=== PATIENT | female | born 1945 | race Caucasian/White ===

== ENCOUNTER 2018-12-08 07:32 | Outpatient (CLI) | payer MEDICARE, BC ==
[2018-12-08 12:14] LABS: Hemoglobin 13.3 g/dL (12.0-16.0); Mean Corpuscular HGB CONC 31.9 g/dL (32.0-36.0); Mean Corpuscular Hemoglobin 28.6 pg (27.0-31.0); Mean Corpuscular Volume 89.7 fL (78.0-98.0); Mean Platelet Volume 8.3 fL (7.4-10.4); Platelet Count 219 thou/uL (130-400); RBC Distribution Width 13.6 % (11.5-14.5); Red Blood Cell (RBC) Count 4.63 mill/uL (4.20-5.40); White Blood Cell (WBC) Count 5.4 thou/uL (4.8-10.8)
[2018-12-08 12:25] LABS: INR-International Normal Ratio 2.7
[2018-12-08 12:26] LABS: PTT 50.2 SEC (22.9-36.1)
[2018-12-08 12:46] LABS: Calcium 9.2 mg/dL (7.8-10.44); Chloride 103 mmol/L (98-107); Potassium 4.5 mmol/L (3.5-5.1); Sodium 137 mmol/L (136-145)
[2018-12-08 13:49] LABS: Anion Gap 15 mmol/L (10-20); BUN (Urea Nitrogen) 21 mg/dL (9.8-20.1); Calc. Creatinine Clearance 0 mL/min (70-130); Carbon Dioxide 25 mmol/L (23-31); Estimated GFR-MDRD 42; Glucose 172 mg/dL (83-110)
--- NOTE | 2018-12-08 22:33 | EKG ---
Test Reason : Blood Pressure : / mmHG Vent. Rate : 099 BPM Atrial Rate : 102 BPM P-R Int : 000 ms QRS Dur : 086 ms QT Int : 380 ms P-R-T Axes : 000 104 093 degrees QTc Int : 487 ms Atrial fibrillation Rightward axis Abnormal ECG When compared with ECG of 25-MAR-2017 08:16, Atrial fibrillation has replaced Sinus rhythm Vent. rate has increased BY 41 BPM Nonspecific T wave abnormality no longer evident in Lateral leads Confirmed by Satya RODRÍGUEZ ([id number]) on 12/08/2018 10:33:24 PM Referred By: [facility] Confirmed By:Satya RODRÍGUEZ
== END 2018-12-08 07:33 | disposition home or self-care (01) ==
LOC: LABBT 07:32
PROVIDERS: ATTEND Internal Medicine Cardiovascular Disease
DX: Z01.818 Encounter for other preprocedural examination (principal); I48.91 Unspecified atrial fibrillation
CPT/HCPCS: 80048; 85027; 85610; 85730; 93005; 93010

== ENCOUNTER 2018-12-10 06:44 | Inpatient (IN) | payer MEDICARE, BC ==
[2018-12-10] MEDS ORDERED: Heparin 10,000 UNITS/1 ML VIAL ONE ×3 (07:22→12:52)
[2018-12-10 08:08] LABS: INR-International Normal Ratio 1.6; Prothrombin Time 18.8 SEC (12.0-14.7)
[2018-12-10] MEDS ORDERED: Midazolam HCl 2 mg/2 ml Vial ONE ×2 (08:56→19:18)
[2018-12-10] MEDS ORDERED: Fentanyl 100 MCG/2 ML VIAL ONE ×2 (08:56→19:17)
[2018-12-10] MEDS ORDERED: Heparin 25,000 units/D5W 500 ML ONE (09:42)
[2018-12-10] MEDS ORDERED: Isoproterenol 0.2 MG/1 ML AMP ONE (09:42)
[2018-12-10] MEDS ORDERED: PHENYLEPHRINE-NS 100 MCG/ML 10 ML SYRINGE ONE ×2 (09:53→16:16)
[2018-12-10] MEDS ORDERED: Phenylephrine HCL 10 MG/ML VIAL ONE (10:08)
[2018-12-10] MEDS ORDERED: Amiodarone 150 MG/3 ML VIAL ONE (12:32)
[2018-12-10] MEDS ORDERED: Protamine Sulfate 50 MG/5 ML VIAL ONE (12:53)
[2018-12-10] MEDS ORDERED: Furosemide 40 MG/4 ML VIAL ONE (14:11)
[2018-12-10] MEDS ORDERED: Acetaminophen ER (8hr) 650 MG TAB PO PRN (15:00)
[2018-12-10] MEDS ORDERED: Ondansetron PF 4 MG/2 ML Vial ONE ×2 (15:15→16:16)
[2018-12-10] MEDS ORDERED: Promethazine HCl 25 MG/ML VIAL ONE (15:36)
[2018-12-10] MEDS ORDERED: Sodium Chloride 0.9% 10 ML ONE ×2 (15:39→16:34)
[2018-12-10] MEDS ORDERED: Lidocaine 1% PF 5 ML VIAL ONE (16:16)
[2018-12-10] MEDS ORDERED: Dexamethasone 20 MG/5 ML VIAL ONE (16:16)
[2018-12-10] MEDS ORDERED: Heparin 5,000 UNITS/ML VIAL ONE (16:16)
[2018-12-10] MEDS ORDERED: Calcium Chloride 1 GM/10 ML Abboject SYRINGE ONE (16:16)
[2018-12-10] MEDS ORDERED: Heparin 10,000 UNITS/ 10 ML VIAL ONE (16:16)
[2018-12-10] MEDS ORDERED: diphenhydrAMINE 50 MG/ML VIAL ONE ×2 (16:16→16:29)
[2018-12-10] MEDS ORDERED: Rocuronium Bromide 10 MG/ML (10ML VIAL) ONE (16:16)
[2018-12-10] MEDS ORDERED: PROPOFOL 200 MG/20 ML VIAL ONE (16:16)
--- NOTE | 2018-12-10 18:24 | OP ---
DATE OF PROCEDURE: 12/10/2018 PROCEDURE PERFORMED: Electrophysiology study and radiofrequency ablation. REASON FOR PROCEDURE: Ms. Lofton is a pleasant 73-year-old woman with history of rate-related cardiomyopathy, recurrent persistent atrial fibrillation initially noted in January 2015. At that point, responded to cardioversion but since September 2018, atrial fibrillation persisted. LVEF was 30% to 35% initially in 2014, but improved to 45% to 50% in September 2018. LVEF of 61% by nuclear scan. She is on chronic Xarelto for anticoagulation. History of elevated BMI, hypertension, diabetes. Here for pulmonary venous isolation procedure. DESCRIPTION OF PROCEDURE: The patient received propofol by Anesthesia specialist. After adequate level of sedation achieved, the left and right femoral venous area was prepped, draped, and anesthetized using subcutaneous lidocaine and under ultrasound guidance, both femoral veins were cannulated x2. On the left side, an 11-Maori short sheath was introduced to allow for the intracardiac echo catheter advanced to the right atrium. The 3D image of the right and left atrium, coronary sinus was performed, and catheter was used to monitor the transeptal procedure as well as to rule out effusion throughout the case. Also in the left femoral vein, a preface sheath was introduced through which DuoDeca catheter was advanced to the right atrium, right ventricle, and eventually CS position. Pacing, mapping, and recording were performed in each location. Following that , on the right side, two 8-Maori short sheath was introduced through which a ThermoCool SFST catheter was advanced to the right atrium and right atrial 3D map was obtained. At this point, the patient was in atrial fibrillation, HV was at 52 milliseconds. QRS is 74 milliseconds noted. QT is 380 milliseconds. A transseptal procedure was performed switching the right-sided sheath to SL1 sheath, which was used with help of a Angiologix catheter to cannulate the left atrium. IV heparin was introduced at this point and ACT was kept over 350 throughout the case. The esophageal probe was used also to monitor temperature to avoid excessive esophageal heating. Through the SL1 sheath, a 20-pole deflectable Lasso catheter was used to obtain 3D image of the left atrium and a ThermoCool SFST catheter was used to perform pulmonary venous isolation and posterior wall isolation. Also, isolation of the inferior wall segments were performed. Septal ablation was also performed. The roof was also ablated. Despite that, the patient required external cardioversion to restore sinus rhythm. Basic EP study was performed(AV WB CL 380ms; VA WBCL 360ms. cSNRT 200ms; HV 54msQRS 74ms, KY 118ms.No dual AVN physiology or accessory pathways were noted.) Isuprel was administered. The pulmonary vein isolation was rechecked and reconnections were re-ablated. Burst atrial pacing induced typical appearing atrial flutter, therfore CTI ablation line was also placed. 2 additional left atrial flutter was induced. One ablated by the base of the LA appendage and an other mapped and ablated at the anterior roof. Sinus rhythm was achieved at the end of atrial flutter ablation. At the end of the case, the patient hadno significant amount of pericardial effusion, overall tolerated the procedure well. Total ablation lesions delivered were 68 ablations with total duration of 45 minutes at 40 encarnacion. CONCLUSION: Successful isolation of all 4 pulmonary veins, posterior wall and inferior wall. Ablation of the intra atrial septum, Right atrial free wall and 2 additional induced atrial flutters (At the base of the TRINO and mid Roof) were performed. Job ID: [id number] [facility]
[2018-12-10] MEDS ORDERED: hydrALAZINE 20 MG/ML VIAL ONE (18:36)
[2018-12-10] MEDS ORDERED: Labetalol HCl 100 MG/20 ML VIAL SLOW IVP PRN (18:54)
[2018-12-10] MEDS ORDERED: Dexamethasone 4 mg/ml Vial ONE (19:07)
[2018-12-10] MEDS ORDERED: Succinylcholine Chloride 20 MG/ML 10 ml SYRINGE FS ONE (19:15)
[2018-12-10] MEDS ORDERED: PROPOFOL 20 ML ONE (19:15)
[2018-12-10] MEDS ORDERED: Oxymetazoline HCl 0.05% ( 15 ML ) ONE (19:36)
[2018-12-10] MEDS ORDERED: Lidocaine 2% Jelly 5 ML TUBE ONE (19:37)
[2018-12-10] MEDS ORDERED: Rivaroxaban 15 MG TAB PO SCH ×3 (21:00→23:59)
[2018-12-10] MEDS: Calcium Carbonate + Vit D 1 TAB PO SCH (23:56)
[2018-12-10] MEDS: hydrALAZINE 20 MG/ML VIAL SLOW IVP PRN (23:56)
[2018-12-11 00:08] VITALS: BMI 43.6
[2018-12-11] MEDS ORDERED: Ondansetron PF 4 MG/2 ML Vial SLOW IVP PRN (04:12)
[2018-12-11] MEDS ORDERED: diphenhydrAMINE 50 MG/ML VIAL IVP SCH (04:15)
[2018-12-11] MEDS: hydrALAZINE 20 MG/ML VIAL SLOW IVP PRN (05:13)
[2018-12-11] MEDS: Ketorolac Tromethamine 30 MG/ML VIAL IVP PRN (05:14)
[2018-12-11] MEDS: Amiodarone 450 MG, Admixture Fee 1 EACH in Dextrose 5% in Water 250 ML IVPB SCH ×2 (07:38→12:25)
[2018-12-11] MEDS ORDERED: [UNRECOGNIZED DRUG - OTHER] PO SCH (09:00)
[2018-12-11] MEDS ORDERED: [UNRECOGNIZED DRUG - OTHER] PO SCH (09:00)
[2018-12-11] MEDS: Glimepiride 4 MG TAB PO SCH ×2 (10:16→11:50)
[2018-12-11] MEDS: FLUoxetine HCl 20 MG CAP PO SCH (10:17)
[2018-12-11] MEDS: Calcium Carbonate + Vit D 1 TAB PO SCH ×2 (10:17→21:17)
[2018-12-11] MEDS: Carvedilol 6.25 MG TAB PO SCH ×2 (10:17→12:38)
[2018-12-11] MEDS: Aspirin 81 mg Enteric Coated Tablet PO SCH (10:17)
[2018-12-11] MEDS: Gabapentin 100 MG CAP PO SCH (10:18)
[2018-12-11] MEDS: Multivitamin W/ Minerals 1 TAB PO SCH (10:18)
--- NOTE | 2018-12-11 11:12 | CON ---
DATE OF CONSULTATION: HISTORY OF PRESENT ILLNESS: Olga Lofton is a 73-year-old female, who underwent ablation yesterday shortly after she developed marked swelling of her tongue. Additionally, the tongue was found to be markedly discolored, bluish. The patient has a normal EF. She was then seen by ENT physician yesterday and a trumpet had been place in the right nostril. She underwent successful pulmonary venous isolation and right-sided ablation of the lesion. This morning, her tongue is less swollen. She denies any chest pain, chills, or sweats. at the bedside. The patient is a nonsmoker. No prior history of TB, pneumonia, or bronchial asthma. PAST MEDICAL HISTORY: Pertinent mainly for atrial fibrillation, chronic pain, and diabetes. PAST SURGICAL HISTORY: Otherwise, none recently. MEDICATIONS: Chronic medications from home includes: 1. Omeprazole 20. 2. Amaryl 4 mg. 3. Gabapentin 100. 4. Omeprazole 20. 5. Xarelto 15. 6. Coreg 12.5. 7. Prozac 20. 8. Vitamins. ALLERGIES: NONE. SOCIAL HISTORY: Alcohol and tobacco, none. PHYSICAL EXAMINATION: GENERAL: Awake, alert, and responsive. VITAL SIGNS: Blood pressure is 150/80, pulse 100, respiratory rate 18, and sats 95%. HEENT: Tongue is markedly discolored with bluish-blackish discoloration. CHEST: Reveal decreased breath sounds. No wheezing. CARDIAC: Normal S1 and S2. No gallops. ABDOMEN: No masses. LABORATORY DATA: Blood sugar 305. IMPRESSION: 1. Status post what appears to be hemorrhage in the tongue accounting for marked tongue swelling. 2. Status post ablation. 3. Atrial fibrillation. 4. Diabetes. PLAN: Very unusual circumstances with marked swelling of the tongue secondary to presumed bleeding inside the tongue, this has improved, probably aggravated by her taking the Xarelto and maybe intubation. We will continue observation in the ICU. At this stage, she is not compromised. We will follow. Job ID: [id number]
[2018-12-11] MEDS ORDERED: Dextrose 5% in Water 1,000 ML IV PRN (11:47)
[2018-12-11] MEDS ORDERED: Dextrose 50% Abboject 50 ML SYRINGE SLOW IVP PRN (11:47)
--- NOTE | 2018-12-11 11:51 | PDOC.CTH ---
Cardiology Progress Note - Subjective EP PROGRESS NOTE: 12/11/18 Seen as follow up for atrial fibrillation s/p PVI on 12/10/18. Had overnight nausea and heart racing. She was started given zofran but then did vomit. She continues to have tongue swelling and pain but reports the pain has subsided some. - Objective Vital Signs Temp Pulse BP 12/11/18 05:29 152 H 183/117 H 12/11/18 03:39 97.9 F 12/10/18 23:56 80 184/98 H 12/10/18 23:51 98.8 F Weight 216 lb 1.6 oz 12/10/18 12/11/18 12/12/18 06:59 06:59 06:59 Intake Total 350 Output Total 500 Balance -150 - Physical Examination General/Neuro: alert & oriented x3 Neck: carotid US brisk, no JVD present Lungs: CTA, unlabored respirations Heart: PMI normal, RRR Abdomen: NT/ND, soft Other PE findings: bilateral groin sites stable. tongue discoloration/swelling - Telemetry Telemetry Rhythm: SR - Labs Result Diagrams: 12/11/18 12:22 12/11/18 12:22 - Assessment/Plan 1. Persistent atrial fibrillation -s/p RFA/PVI on 12/11/18 for AFib, 2 seperate LA flutters, RA flutter/CTI. 45min RF energy delivered -post ablation early recurrence paroxysmal episodes of AFib/Flutter. Amiodarone bolus/gtt started around 0700 which quickly stabilized rhyth. Amio gtt to be stopped once current bag is empty -PO amiodarone taper started today. see EMAR -TCA post PVI/ablation packet (given to patient & on 12/11/18). - 4-6 week follow up appt will be arranged - No soaking baths x 7 days. No lifting > 10 pounds x 7 days. No driving x 2 days. Light activity x 7 days then resume activity gradually and as tolerated 2. CHADS2-VASC: 5-6 - Continue xarelto 15mg PO QPM with evening meal 3. Tongue swelling/bruising - likely due to some sort of trauma/ friction while intubated on heparin during ablation. Does not appear to have worsened over HS 4. Nausea - poor appetite today - likely post anesthesia and also related to tongue pain López being removed today. Amiodarone has stabilized rhythm. ENT consult ordered to evaluate tongue bruising/swelling before she could potentially DC over the weekend. Spoke to Dr Blue who will take over as admitting MD. Malcom will DC patient over weekend if deemed stable. Cardiology will see over weekend as well to address any rhythm/post ablation needs. Other than tongue swelling/ bruising and some nausea, patient looks good post ablation. *Please DC with following post ablation medications (already on EMAR but will need rxs) - carafate suspension 1 gram po with meals and at bedtime x 2 weeks - protonix 40mg daily x 30 days - Lasix 40mg daily NEEDED for shortness of breath/weight gain - potassium 20mEq daily ONLY if taking lasix that day for shortness of breath - Colchicine 0.3mg twice daily x 2 weeks post ablation to minimize chest discomfort and reduce post ablation inflammation - Xarelto 15mg daily with evening meal post ablation. Do not stop this medication unless instructed to do so by TCA - Amiodarone taper as ordered in EMAR Otherwise continue home medications as appropriate.
[2018-12-11] MEDS: diphenhydrAMINE 50 MG/ML VIAL IVP PRN ×2 (12:39→21:18)
[2018-12-11] MEDS: Loratadine 10 MG TAB PO SCH ×3 (12:39→21:18)
[2018-12-11 12:51] LABS: #Monocytes 1.1 thou/uL (0.11-0.59); #Neutrophils 8.1 thou/uL (1.40-6.50); %Basophils 0.2 % (0.0-1.0); %Eosinophils 0.2 % (0.0-10.0); %Lymphocytes 9.8 % (21.0-51.0); %Monocytes 10.9 % (0.0-10.0); Hemoglobin 12.2 g/dL (12.0-16.0); Mean Corpuscular HGB CONC 32.2 g/dL (32.0-36.0); Mean Corpuscular Hemoglobin 28.5 pg (27.0-31.0); Mean Corpuscular Volume 88.4 fL (78.0-98.0); Mean Platelet Volume 8.5 fL (7.4-10.4); Platelet Count 218 thou/uL (130-400); RBC Distribution Width 13.7 % (11.5-14.5); White Blood Cell (WBC) Count 10.2 thou/uL (4.8-10.8)
[2018-12-11 12:52] LABS: ALT (SGPT) 26 U/L (8-55); AST (SGOT) 64 U/L (5-34); Albumin 3.4 g/dL (3.4-4.8); Alkaline Phosphatase 89 U/L (40-150); Anion Gap 16 mmol/L (10-20); BUN (Urea Nitrogen) 33 mg/dL (9.8-20.1); Bilirubin, Total 0.9 mg/dL (0.2-1.2); Calc. Creatinine Clearance 48 mL/min (70-130); Calcium 8.8 mg/dL (7.8-10.44); Carbon Dioxide 21 mmol/L (23-31); Chloride 102 mmol/L (98-107); Estimated GFR-MDRD 32; Glucose 310 mg/dL (83-110); Magnesium 1.2 mg/dL (1.6-2.6); Potassium 4.6 mmol/L (3.5-5.1); Protein, Total 6.4 g/dL (6.0-8.3); Sodium 134 mmol/L (136-145)
--- NOTE | 2018-12-11 13:18 | CON ---
DATE OF CONSULTATION: 12/11/2018 CONSULTING PHYSICIAN: Dr. Darien Rivas. REASON FOR CONSULTATION: Medical management. HISTORY OF PRESENT ILLNESS: The patient is a 73-year-old female with diabetes, hypertension, and paroxysmal atrial fibrillation, who presented to the hospital for ablation, which she had on December 10, 2018. The patient however developed bruising and swelling of the tongue postoperatively and was subsequently admitted to the hospital. Hospitalist Service was consulted for medical management. The patient reported that the tongue swelling has improved. She denied nausea, vomiting, chest pain, fever, cough, shortness of breath, dysuria, hematuria, leg swelling or abdominal pain. The patient had a few episodes of emesis postoperative, but has not had any further emesis. She was treated yesterday with Decadron 4 mg x1 as well as Benadryl 12.5 mg IV. Overnight, the patient blood pressure went up and she was given a dose of labetalol. Also, she was noted to be multi focal atrial tachycardic and was started on amiodarone infusion. She currently looks stable and comfortable. PAST MEDICAL HISTORY: 1. Type 2 diabetes. 2. Obesity. 3. Chronic pain. 4. Atrial fibrillation. 5. Hypertension. PAST SURGICAL HISTORY: 1. Bilateral knee replacement. 2. Cholecystectomy. SOCIAL HISTORY: The patient lives with spouse. Denied smoking. FAMILY HISTORY: Reviewed, noncontributory. HOME MEDICATIONS: 1. Aspirin 81 mg p.o. daily. 2. Carvedilol 12.5 mg p.o. b.i.d. 3. Tylenol 650 mg p.o. q.6 p.r.n. 4. Prozac 20 mg p.o. daily. 5. Glimepiride 4 mg daily. 6. Gabapentin 100 mg p.o. daily. 7. Multivitamin with calcium, iron, and mineral, multivitamin for women will main one tablet daily. 8. Omeprazole 20 mg p.o. daily. 9. Xarelto 15 mg p.o. daily. 10. capsule five capsules p.o. daily. ALLERGIES: ADHESIVE TAPE. CURRENT HOSPITAL MEDICATIONS: 1. Amiodarone infusion as per protocol. 2. Aspirin 81 mg p.o. daily. 3. Calcium carbonate 1 tablet p.o. b.i.d. 4. Carvedilol 12.5 mg p.o. b.i.d. 5. Prozac 20 mg p.o. daily. 6. Gabapentin 100 mg p.o. daily. 7. Glimepiride 4 mg p.o. daily. 8. Multivitamin with minerals 1 tablet p.o. daily. 9. Protonix 40 mg p.o. daily. 10. Xarelto 15 mg p.o. daily at bedtime. 11. Acetaminophen 650 mg q.8h p.r.n. for pain. 12. Hydralazine 10 mg q.2 hours p.r.n. for hypertension. 13. Labetalol 10 mg IV push q.1 hour p.r.n. for hypertension. 14. Ondansetron 4 mg IV q.4 hours p.r.n. for nausea, vomiting. PHYSICAL EXAMINATION: VITAL SIGNS: BP 151/75, respiratory rate 16, SpO2 97 on room air. Heart rate 79. GENERAL: Obese elderly female in no obvious distress. Afebrile. Anicteric. Acyanotic. HEENT: Normocephalic, atraumatic. Oral mucosa is moist. Tongue is swollen. Tongue, however, is not protruding from the mouth. Nasal trumpet is noted. NECK: Supple. No swelling, edema, or lymphadenopathy. CARDIOVASCULAR: Regular rhythm and rate with normal heart sounds. RESPIRATORY: Good air entry bilaterally with no obvious crackle or rhonchi or use of accessory muscles. GI: Abdomen is morbidly obese, soft, nontender, nondistended with normal bowel sounds. UROGENITAL: López catheter is in place draining urine. EXTREMITIES: Grossly normal looking, atraumatic with no obvious edema, erythema , or cyanosis. Distal pulses are palpable. NEUROLOGIC: Conscious and alert, oriented x3 with appropriate mental status. DIAGNOSTIC DATA: No blood work done during this admission. However, review of medical record showed CBC on December 08 with WBC count of 5.4, hemoglobin of 13.3, MCV of 89.7, and platelets of 219. BMP on December 08, 2018 showed sodium 137, potassium 4.5, chloride 103, CO2 of 25, anion gap 15, BUN 21, creatinine 1.24, glucose 172 , calcium 9.2. Hemoglobin A1c performed on November 30, 2018 was 7.2. ASSESSMENT: 1. Tongue swelling: Differentials include angioedema and/or hematoma of the tongue possibly from traumatic intubation or bruises. Of note, the patient has been on anticoagulation. The patient received Decadron and Benadryl with improvement of swelling. The patient is not on lisinopril or any angiotensin converting enzyme inhibitor. She has had prior surgeries with intubation, but has never had a similar problem in the past. 2. Atrial fibrillation, status post ablation. 3. Chronic anticoagulation with Eliquis. 4. Type 2 diabetes mellitus. Control is fair with hemoglobin A1c of 7.2. 5. Hypertension: Control is inadequate. 6. Morbid obesity. 7. Chronic pain. 8. Depression. 9. MAT: Treatment as per cardiology. PLAN: 1. We get a CBC and CMP. We will also continue Benadryl. 2. We will start the patient on sliding scale insulin. We will also continue glimepiride and other oral medications if patient can tolerate. 3. We get bedside swallow evaluation and if the patient can swallow, we will advance diet as tolerated. 4. We will continue amiodarone according to protocol as directed by the EPS. 5. Nasal trumpet and respiratory management as per Pulmonary and Critical Care. 6. We will start the patient on amlodipine to get adequate BP control. 7. DVT prophylaxis has been addressed. The patient is on Eliquis and Xarelto. Job ID: [id number] [facility]
[2018-12-11] MEDS ORDERED: Potassium Chloride 20 MEQ TAB PO PRN (13:45)
[2018-12-11] MEDS ORDERED: Furosemide 40 MG TAB PO PRN (13:45)
[2018-12-11] MEDS ORDERED: Potassium Chloride 20 MEQ TAB PO SCH (14:00)
[2018-12-11] MEDS ORDERED: Furosemide 40 MG TAB PO SCH (14:00)
[2018-12-11] MEDS: Amiodarone 200 MG TAB PO SCH ×2 (16:00→21:16)
[2018-12-11] MEDS: HumaLOG 300 UNITS/3 ML VIAL SC PRN (16:08)
[2018-12-11] MEDS: Sucralfate 1 GM/10 ML UDCUP PO SCH ×2 (18:46→21:16)
[2018-12-11] MEDS: Rivaroxaban 15 MG TAB PO SCH (18:49)
[2018-12-11] MEDS ORDERED: Colchicine 0.6 MG TAB PO SCH (21:00)
[2018-12-11] MEDS ORDERED: Amiodarone 200 MG TAB PO SCH (21:00)
[2018-12-11] MEDS: Colchicine 0.3 MG TAB PO SCH (21:17)
[2018-12-12] MEDS: HumaLOG 300 UNITS/3 ML VIAL SC PRN (06:30)
[2018-12-12 06:31] LABS: ALT (SGPT) 23 U/L (8-55); AST (SGOT) 54 U/L (5-34); Albumin 3.6 g/dL (3.4-4.8); Alkaline Phosphatase 88 U/L (40-150); Anion Gap 13 mmol/L (10-20); BUN (Urea Nitrogen) 35 mg/dL (9.8-20.1); Calc. Creatinine Clearance 49 mL/min (70-130); Calcium 9.3 mg/dL (7.8-10.44); Carbon Dioxide 28 mmol/L (23-31); Chloride 99 mmol/L (98-107); Estimated GFR-MDRD 32; Globulin 3.2 g/dL (2.4-3.5); Glucose 154 mg/dL (83-110); Protein, Total 6.8 g/dL (6.0-8.3); Sodium 136 mmol/L (136-145)
[2018-12-12] MEDS: diphenhydrAMINE 50 MG/ML VIAL IVP PRN (07:37)
[2018-12-12] MEDS: Ketorolac Tromethamine 30 MG/ML VIAL IVP PRN (07:37)
[2018-12-12] MEDS: Amlodipine 5 MG TAB PO SCH (07:43)
[2018-12-12] MEDS: Glimepiride 4 MG TAB PO SCH (07:43)
[2018-12-12] MEDS: Sucralfate 1 GM/10 ML UDCUP PO SCH ×4 (07:56→21:52)
[2018-12-12] MEDS: FLUoxetine HCl 20 MG CAP PO SCH (09:45)
[2018-12-12 09:46] VITALS: BP 137/64
[2018-12-12] MEDS: Carvedilol 6.25 MG TAB PO SCH (09:46)
[2018-12-12] MEDS: Gabapentin 100 MG CAP PO SCH (09:46)
[2018-12-12] MEDS: Amiodarone 200 MG TAB PO SCH ×3 (09:46→21:44)
[2018-12-12] MEDS: Calcium Carbonate + Vit D 1 TAB PO SCH ×2 (11:14→21:44)
[2018-12-12] MEDS: Colchicine 0.3 MG TAB PO SCH ×2 (11:15→21:44)
[2018-12-12] MEDS: Loratadine 10 MG TAB PO SCH ×2 (11:15→21:44)
[2018-12-12] MEDS: Multivitamin W/ Minerals 1 TAB PO SCH (11:15)
[2018-12-12] MEDS: Aspirin 81 mg Enteric Coated Tablet PO SCH (11:15)
[2018-12-12] MEDS ORDERED: Lactated Ringer's 1,000 ML IV SCH (11:45)
--- NOTE | 2018-12-12 11:54 | PDOC.PN ---
- Subjective Encounter Start Date: 12/12/18 Encounter Start Time: 11:52 Subjective: Admitted after atrial fibrillation ablation due to tong hematoma/ swelling -: Feeling better. No fever or chest pain. - Objective Vital Signs & Weight: Vital Signs (12 hours) Temp Pulse BP Pulse Ox 12/12/18 10:33 98.3 F 12/12/18 09:46 137/64 12/12/18 08:00 98 12/12/18 07:43 86 167/78 H 12/12/18 07:07 99.2 F 12/12/18 04:00 98.9 F 12/12/18 00:00 98.0 F Weight Weight 216 lb 1.6 oz Most Recent Monitor Data Heart Rate from ECG 76 NIBP 110/46 NIBP BP-Mean 67 Respiration from ECG 21 SpO2 93 I&O: 12/11/18 12/12/18 12/13/18 06:59 06:59 06:59 Intake Total 650 Output Total 750 Balance -100 Result Diagrams: 12/11/18 12:22 12/12/18 05:06 Additional Labs: Accuchecks 12/12/18 12/12/18 12/11/18 10:23 06:29 20:32 POC Glucose 152 H 163 H 172 H 12/11/18 15:32 POC Glucose 280 H Phys Exam - Physical Examination Constitutional: NAD morbidly obese HEENT: PERRLA, moist MMs left sided hematoma and slough as well mild global swelling of the tong. Neck: no JVD, supple Respiratory: no wheezing, no rhonchi fair entry bilaterally with adventitial sound both lungs Cardiovascular: RRR Gastrointestinal: soft, non-tender, no distention, positive bowel sounds morbidly obese Musculoskeletal: no edema, pulses present Neurological: non-focal, moves all 4 limbs Psychiatric: A&O x 3 Dx/Plan (1) MIKAELA (acute kidney injury) Code(s): N17.9 - ACUTE KIDNEY FAILURE, UNSPECIFIED Status: Acute Comment: Most likely due to prerenal factors related to poor oral intake and diuretic with contribution from ketorolac. (2) S/P ablation of atrial fibrillation Code(s): Z98.890 - OTHER SPECIFIED POSTPROCEDURAL STATES; Z86.79 - PERSONAL HISTORY OF OTHER DISEASES OF THE CIRCULATORY SYSTEM Status: Acute (3) Hemorrhage of tongue Code(s): K14.8 - OTHER DISEASES OF TONGUE Status: Acute (4) ANNA MARIE (obstructive sleep apnea) Code(s): G47.33 - OBSTRUCTIVE SLEEP APNEA (ADULT) (PEDIATRIC) Status: Acute (5) Morbid obesity Code(s): E66.01 - MORBID (SEVERE) OBESITY DUE TO EXCESS CALORIES Status: Acute (6) Type 2 diabetes mellitus Status: Acute (7) Atrial fibrillation Code(s): I48.91 - UNSPECIFIED ATRIAL FIBRILLATION Status: Acute (8) HTN (hypertension) Code(s): I10 - ESSENTIAL (PRIMARY) HYPERTENSION Status: Acute - Plan DC lasix and ketorolax -: Start IVF fluid. Recheck renal function in the am. further eval if no impro -: liberal oral intake encouraged -: Start IS. Wean oxygen as tolerated. -: increase activity. Continue chronic anticoagulation. * .
--- NOTE | 2018-12-12 12:00 | PRG ---
DATE OF SERVICE: 12/12/2018 SUBJECTIVE: Olga Lofton, this morning, is still in significant pain in the tongue. Tongue is still swollen, still diffusely bluish discoloration. OBJECTIVE: VITAL SIGNS: Temperature 98, pulse 76, blood pressure . CHEST: No wheezing or crackles. CARDIAC: Normal S1, S2. No gallops or masses. LABORATORY DATA: Creatinine 1.57. IMPRESSION: 1. Atrial fibrillation status post ablation. 2. Marked tongue bruising, hemorrhage. Significant pain. PLAN: No pulmonary compromise at this stage. Added magic wash for comfort. We will follow. Job ID: [id number]
[2018-12-12] MEDS: Sodium Chloride 0.9% 1,000 ML IV SCH ×2 (12:50→21:51)
[2018-12-12] MEDS: Aluminum & Magnesium Hydroxide 60 ML, Lidocaine 2% Viscous Solution 30 ML, diphenhydrAM... SSW PRN ×3 (12:59→22:47)
[2018-12-12] MEDS: Rivaroxaban 15 MG TAB PO SCH (17:13)
[2018-12-13 07:07] VITALS: TEMP 97.4
[2018-12-13 07:12] LABS: Anion Gap 11 mmol/L (10-20); BUN (Urea Nitrogen) 26 mg/dL (9.8-20.1); Calc. Creatinine Clearance 64 mL/min (70-130); Carbon Dioxide 27 mmol/L (23-31); Chloride 103 mmol/L (98-107); Estimated GFR-MDRD 44; Glucose 110 mg/dL (83-110); Potassium 4.1 mmol/L (3.5-5.1); Sodium 137 mmol/L (136-145)
[2018-12-13] MEDS: Aluminum & Magnesium Hydroxide 60 ML, Lidocaine 2% Viscous Solution 30 ML, diphenhydrAM... SSW PRN (08:57)
[2018-12-13] MEDS ORDERED: Lidocaine Viscous Sol 2% 15 ml UD Cup SSP PRN (08:57)
[2018-12-13] MEDS: Loratadine 10 MG TAB PO SCH (08:59)
[2018-12-13] MEDS: Gabapentin 100 MG CAP PO SCH (08:59)
[2018-12-13] MEDS: Multivitamin W/ Minerals 1 TAB PO SCH (09:00)
[2018-12-13] MEDS: Amlodipine 5 MG TAB PO SCH (09:00)
[2018-12-13] MEDS: Calcium Carbonate + Vit D 1 TAB PO SCH (09:00)
[2018-12-13] MEDS: Aspirin 81 mg Enteric Coated Tablet PO SCH (09:00)
[2018-12-13] MEDS: Carvedilol 6.25 MG TAB PO SCH (09:01)
[2018-12-13] MEDS: FLUoxetine HCl 20 MG CAP PO SCH (09:01)
[2018-12-13] MEDS: Sucralfate 1 GM/10 ML UDCUP PO SCH (09:02)
[2018-12-13] MEDS: Colchicine 0.3 MG TAB PO SCH (09:02)
[2018-12-13] MEDS: Amiodarone 200 MG TAB PO SCH (09:03)
[2018-12-13] MEDS: Glimepiride 4 MG TAB PO SCH (09:03)
[2018-12-13] MEDS: Sodium Chloride 0.9% 1,000 ML IV SCH (09:04)
--- NOTE | 2018-12-13 10:51 | PRG ---
DATE OF SERVICE: SUBJECTIVE: This morning, her tongue is still swollen, still painful. She was given some Magic wash, without much relief. She will be discharged home. Follow up with the primary care physician and ENT physician. OBJECTIVE: VITAL SIGNS: Blood pressure 137/64, saturations 95%, respiratory rate 18. CHEST: No wheezing. CARDIAC: Normal S1, S2. No gallops. ABDOMEN: No masses. IMPRESSION: Status post tongue hemorrhage and laceration, status post ablation. PLAN: Comfort care. Follow up with ENT. Job ID: [id number]
--- NOTE | 2018-12-14 07:58 | DIS ---
DATE OF ADMISSION: 12/11/2018 DATE OF DISCHARGE: 12/13/2018 DISCHARGE DIAGNOSES: 1. Tongue bruise and hematoma.(Etiology unclear and unable to determine relation to procedure) 2. Atrial fibrillation, status post ablation. 3. Multifocal atrial tachycardia. 4. Hypertension. 5. Morbid obesity. 6. Type 2 diabetes mellitus. 7. Depression. 8. Chronic anticoagulation with Eliquis. CONSULTS: 1. Cardiology. 2. ENT. 3. Pulmonary and Critical Care. HOSPITAL COURSE: A 73-year-old female with known history of type 2 diabetes, hypertension, and paroxysmal atrial fibrillation, who was admitted by the Cardiology Service after atrial fibrillation ablation due to tongue bruising and swelling. The patient postprocedure had developed tongue swelling and bruising, associated with some shortness of breath. The patient was seen by ENT, and nasal trumpet was placed, and the patient was started on steroid and antihistamine. She also received Magic mouthwash, which is Benadryl and Viscous lidocaine with improvement in pain and swelling. Hospitalist consult was requested for medical management and also to take over management. The patient was found to have uncontrolled hypertension, poorly controlled type 2 diabetes, as well as acute kidney injury. Of note, the patient also developed tachycardia, which was felt to be multifocal atrial tachycardia and was started on amiodarone per protocol. Renal function improved as well as blood pressure, and the patient was ambulating. Oxygen supplementation was weaned off, and the patient was subsequently discharged home to follow up with Cardiology and primary care physician. PHYSICAL EXAMINATION: VITAL SIGNS: Temperature 97.4, pulse 80, respiratory rate 20, SpO2 of 96% on room air, and blood pressure 137/64. GENERAL: Morbidly obese female, in no obvious distress. Afebrile. Anicteric. Acyanotic. HEENT: Normocephalic and atraumatic. Pupils are equal and reacting to light. Tongue; bruise, discoloration, and mild swelling noted. Some slough on the left side and undersurface of tongue noted as well. No obvious bleeding was noted. CARDIOVASCULAR: Regular rhythm and rate with normal heart sounds one and two. RESPIRATORY: Good air entry bilaterally with no obvious crackle or rhonchi or use of accessory muscles. GI: Morbidly obese, soft, nontender, nondistended with normal bowel sounds. EXTREMITIES: Grossly normal. Atraumatic with no edema or erythema. NEUROLOGIC: Conscious and alert, oriented x3 with appropriate mental status. FOLLOWUP: The patient is to follow with PCP within 1 week of discharge. Of note, the patient had hypoxia while sleeping, which is consistent with obstructive sleep apnea. The patient also was noted that she used to use CPAP, but that got . PCP should arrange for replacement of CPAP. The patient also is to follow up with loading machine operator in 4 to 6 weeks. DISCHARGE MEDICATIONS: 1. Aspirin 81 mg p.o. daily. 2. Calcium carbonate vitamin D 1 tablet b.i.d. 3. Carvedilol 12.5 mg p.o. b.i.d. 4. Acetaminophen 650 mg p.o. as needed. 5. Gabapentin 100 mg daily. 6. Glimepiride 4 mg p.o. daily. 7. Multivitamin with calcium, iron, and minerals 1 tablet p.o. daily. 8. Omeprazole 20 mg p.o. daily. 9. Plexus MegaX soft gel two caps daily. 10. Plexus ProBio caps 5 caps p.o. daily. 11. Xarelto 15 mg p.o. daily. 12. Viscous lidocaine 15 mL swish and spit every 4 hours p.r.n. for pain. 13. Amiodarone 200 mg t.i.d. for one week, followed by 200 mg b.i.d. and then 200 mg daily. 14. Amlodipine 5 mg p.o. daily. 15. Colchicine 0.3 mg p.o. b.i.d. for 12 days. 16. Prozac 20 mg p.o. daily. 17. Metformin 500 mg p.o. b.i.d. TIME SPENT: Discharge took more than 38 minutes. Job ID: [id number] [facility]
--- NOTE | 2018-12-14 22:27 | EKG ---
Test Reason : POST ABLATION Blood Pressure : / mmHG Vent. Rate : 073 BPM Atrial Rate : 071 BPM P-R Int : 000 ms QRS Dur : 092 ms QT Int : 460 ms P-R-T Axes : 000 080 090 degrees QTc Int : 506 ms Atrial fibrillation Nonspecific T wave abnormality , probably digitalis effect Prolonged QT Abnormal ECG When compared with ECG of 08-DEC-2018 11:45, No significant change was found Confirmed by Satya RODRÍGUEZ ([id number]) on 12/14/2018 10:27:09 PM Referred By: [facility] Confirmed By:Satya RODRÍGUEZ
--- NOTE | 2018-12-14 22:31 | EKG ---
Test Reason : STAT Blood Pressure : / mmHG Vent. Rate : 140 BPM Atrial Rate : 140 BPM P-R Int : 166 ms QRS Dur : 080 ms QT Int : 266 ms P-R-T Axes : 001 070 150 degrees QTc Int : 406 ms Sinus tachycardia . Probable atrial flutter with 2:1 block. Cannot rule out Anterior infarct , age undetermined Abnormal ECG When compared with ECG of 10-DEC-2018 14:46, (Unconfirmed) Sinus rhythm has replaced Atrial fibrillation Vent. rate has increased BY 67 BPM Nonspecific T wave abnormality now evident in Inferior leads Confirmed by Satya RODRÍGUEZ ([id number]) on 12/14/2018 10:31:02 PM Referred By: [facility] Confirmed By:Satya RODRÍGUEZ
--- NOTE | 2018-12-15 07:00 | PQF ---
LG OATES OBIANETTE [id number] [facility]- B01 [id number] CLINICAL DOCUMENTATION CLARIFICATION FORM: POST DISCHARGE DATE: 12/15/2018 ATTN: Dr. Blue Please exercise your independent, professional judgment in responding to the clarification form. Clinical indicators are provided on the bottom of this form for your review Please check appropriate box(s): [ ] Tongue bruise/hematoma is a postoperative complication related to current surgery [ ] Tongue bruise/hematoma is not a postoperative complication related to current surgery [ ] Tongue bruise/hematoma due to (please specify) [ ] Other diagnosis (please specify) [ x ] Unable to determine In addition, please specify: Present on Admission (POA): [ ] Yes [ ] No [ x ] Unable to determine CLINICAL INDICATORS - SIGNS / SYMPTOMS / LABS Per PN 12/13 (Dougherty): Tongue still swollen and painful. "Status post tongue hemorrhage and laceration, status post ablation." Per 12/12 PN (Dougherty): "Tongue still swollen. Still diffusely bluish discoloration. Marked tongue bruising, hemorrhage. Significant pain". Per 12/11 consult ( Obi): Post ablation developed bruising and swelling of tongue. Assessment: "Tongue swelling: Differentials include angioedema and/ or hematoma of the tongue possibly from traumatic intubation or bruises". Per 12/11 consult (Dougherty): After ablation developed marked swelling of tongue. Markedly discolored, bluish. Impression: "Status post what appears to be hemorrhage in the tongue accounting formed marked tongue swelling. Plan: Very unusual circumstances with marked swelling of the tongue secondary to presumed bleeding inside the tongue. Improved. Probably aggravated by her taking Xarelto and maybe intubation." Per cardiology PN 12/11 (Evelyn): Tongue swelling/bruising. Likely due to some sort of trauma/friction while intubated on heparin during ablation. Per 12/12 Hospitalist PN (Obi): Hemorrhage of tongue. Per Discharge Summary: Tongue bruise and hematoma. Admitted by cardiology service after atrial fibrillation ablation due to tongue bruising and swelling. Postprocedure had developed tongue swelling and bruising with some shortness of breath. RISK FACTORS Per 12/10 operative report (Evelyn): Electrophysiology study and radiofrequency ablation 12/10/2018. Per H&P: Patient on Xarelto 50 mg daily. TREATMENT: Per 12/12 PN (Dougherty): "Added magic wash for comfort." Per 12/11 consult (Obi): Decadron 4 mg x 1. Benadryl 12.5 mg IV on 12/10. (This form is maintained as a part of the permanent medical record) 2014 [employer] All Rights Reserved [email or web address] [phone] WM
[2018-12-18] MEDS ORDERED: Amiodarone 200 MG TAB PO SCH (09:00)
[2018-12-26] MEDS ORDERED: Amiodarone 200 MG TAB PO SCH (09:00)
== END 2018-12-13 10:20 | disposition home or self-care (01) | DRG 982 ==
LOC: SDC 06:44 → 2SW 14:36 → IMCU/EMU 18:44 → OBSVTOIN 12-11 14:10
PROVIDERS: ADMIT Internal Medicine Cardiovascular Disease; ATTEND Internal Medicine Cardiovascular Disease
PROC: 02583ZZ Destruction of Conduction Mechanism, Percutaneous Approach (ICD-10-PCS; principal; 2018-12-10)
PROC: 02K83ZZ Map Conduction Mechanism, Percutaneous Approach (ICD-10-PCS; 2018-12-10)
PROC: 4A023FZ Measurement of Cardiac Rhythm, Percutaneous Approach (ICD-10-PCS; 2018-12-10)
PROC: 4A0234Z Measurement of Cardiac Electrical Activity, Percutaneous Approach (ICD-10-PCS; 2018-12-10)
DX: K14.8 Other diseases of tongue (principal); I48.1 Persistent atrial fibrillation; Z68.41 Body mass index [BMI] 40.0-44.9, adult; N17.9 Acute kidney failure, unspecified; I47.1 Supraventricular tachycardia; K14.6 Glossodynia; E11.65 Type 2 diabetes mellitus with hyperglycemia; E66.01 Morbid (severe) obesity due to excess calories; I10 Essential (primary) hypertension; F32.9 Major depressive disorder, single episode, unspecified; G47.33 Obstructive sleep apnea (adult) (pediatric); G89.29 Other chronic pain; Z79.01 Long term (current) use of anticoagulants; Z79.84 Long term (current) use of oral hypoglycemic drugs; Z79.82 Long term (current) use of aspirin; Z79.899 Other long term (current) drug therapy; Z96.653 Presence of artificial knee joint, bilateral; Z01.818 Encounter for other preprocedural examination
CPT/HCPCS: 36415; 36416; 76942; 80048; 80053; 83735; 84443; 85025; 85027; 85347; 85610; 85730; 92960; 93005; 93010; 93613; 93623; 93655; 93656; 93662; C1731; C1732; C1759; C1769; J0282; J0360; J1100; J1200; J1644; J1885; J1940; J2001; J2250; J2370; J2405; J2550; J2704; J2720; J3010; J7070; Q0163

== ENCOUNTER 2022-05-02 05:34 | Emergency (ER) | payer MEDICARE, BC ==
[2022-05-02 06:46] LABS: #Basophils 0.1 thou/uL (0.0-0.2); #Eosinphils 0.2 thou/uL (0.0-0.7); #Lymphocytes 1.7 thou/uL (1.20-3.40); #Monocytes 0.8 thou/uL (0.11-0.59); #Neutrophils 5.6 thou/uL (1.40-6.50); %Basophils 0.8 % (0.0-1.0); %Eosinophils 2.1 % (0.0-10.0); %Lymphocytes 20.7 % (21.0-51.0); %Monocytes 9.5 % (0.0-10.0); %Neutrophils 66.9 % (42.0-75.0); Mean Corpuscular HGB CONC 33.7 g/dL (32.0-36.0); Mean Corpuscular Volume 88.9 fL (78.0-98.0); Mean Platelet Volume 8.3 fL (7.4-10.4); Platelet Count 275 thou/uL (130-400); RBC Distribution Width 13.6 % (11.5-14.5); Red Blood Cell (RBC) Count 4.34 mill/uL (4.20-5.40); White Blood Cell (WBC) Count 8.3 thou/uL (4.8-10.8)
[2022-05-02 07:06] LABS: ALT (SGPT) 17 U/L (8-55); AST (SGOT) 23 U/L (5-34); Albumin 3.7 g/dL (3.4-4.8); Alkaline Phosphatase 65 U/L (40-110); Anion Gap 16 mmol/L (10-20); BUN (Urea Nitrogen) 23 mg/dL (9.8-20.1); Bilirubin, Total 0.7 mg/dL (0.2-1.2); Calc. Creatinine Clearance 0 mL/min (70-130); Calcium 9.6 mg/dL (7.8-10.44); Carbon Dioxide 26 mmol/L (23-31); Chloride 101 mmol/L (98-107); Estimated GFR 44; Globulin 3.4 g/dL (2.4-3.5); Glucose 148 mg/dL (83-110); Potassium 3.5 mmol/L (3.5-5.1); Protein, Total 7.1 g/dL (5.8-8.1); Sodium 139 mmol/L (136-145)
== END 2022-05-02 07:36 | disposition home or self-care (01) ==
LOC: ERS 05:34
DX: R10.9 Unspecified abdominal pain (principal); I11.0 Hypertensive heart disease with heart failure; I50.9 Heart failure, unspecified; I48.91 Unspecified atrial fibrillation; E78.5 Hyperlipidemia, unspecified; E66.9 Obesity, unspecified; Z68.45 Body mass index [BMI] 70 or greater, adult
CPT/HCPCS: 36415; 74176; 80053; 85025